=== PATIENT | male | born 1975 | race Caucasian/White ===

== ENCOUNTER 2018-01-15 16:07 | Emergency (ER) | payer BC ==
[~2018-01-15] VITALS: Ht 180.3 cm; Wt 84.0 kg
[2018-01-15] MEDS ORDERED: PERCOCET 5/31 TABLET PO (19:36)
[2018-01-15] MEDS ORDERED: MOTRIN800 MG PO (19:36)
[2018-01-15 20:09] VITALS: BP 103/59
== END 2018-01-15 20:26 | disposition home or self-care (01) ==
LOC: EME 16:07
PROC: 2W3RX1Z Immobilization of Left Lower Leg using Splint (ICD-10-PCS; principal; 2018-01-15)
DX: S92.142A Displaced dome fracture of left talus, initial encounter for closed fracture (principal); W18.39XA Other fall on same level, initial encounter; X50.1XXA Overexertion from prolonged static or awkward postures, initial encounter; Y93.61 Activity, american tackle football
CPT/HCPCS: 73610; 73700; 99281; 99284